=== PATIENT | male | born 1970 ===

== ENCOUNTER 2025-01-17 08:27 | Outpatient (CLI) | payer OTHER ==
[2025-01-17 09:34] LABS: BASO % 0.7 % (0.1-1.2); EOS # 0.24 (0.04-0.54); EOS % 4.2 % (0.7-7.0); HEMOGLOBIN 14.9 g/dL (13.7-17.5); LYMPH # 2.21 (1.18-3.74); LYMPH % 38.6 % (19.3-53.1); MEAN CORPUSCULAR HEMOGLOBIN 29.4 pg (25.6-32.2); MONO # 0.37 (0.24-0.82); MONO % 6.5 % (4.7-12.5); NEUT # 2.82 (1.56-6.13); NEUT % 49.3 % (34.0-71.1); PLATELET COUNT 239 K/uL (163-369); RED BLOOD COUNT 5.07 M/uL (4.63-6.08); RED CELL DISTRIBUTION WIDTH 12.2 % (11.6-14.4)
[2025-01-17 09:52] LABS: INR 0.94; PROTHROMBIN TIME 10.3 SECONDS (9.0-11.5)
[2025-01-17 10:04] LABS: ALBUMIN 4.2 gm/dL (3.4-5.0); BILIRUBIN TOTAL 0.43 mg/dL (0.3-1.2); CALCIUM 8.7 mg/dL (8.5-10.1); CHOL HDL RATIO 3.9 (0-5.0); CREATININE SERUM 0.93 mg/dL (0.70-1.30); GFR 84.35; GLOBULINA 3.3 G/DL (2.4-3.5); POTASSIUM 4.18 mEq/L (3.5-5.1); TOTAL PROTEIN 7.5 gm/dL (6.4-8.2)
== END 2025-01-17 08:28 | disposition home or self-care (01) ==
LOC: LAB 08:27
DX: K76.0 Fatty (change of) liver, not elsewhere classified (principal); K57.90 Diverticulosis of intestine, part unspecified, without perforation or abscess without bleeding; K64.9 Unspecified hemorrhoids; Z80.0 Family history of malignant neoplasm of digestive organs; Z12.11 Encounter for screening for malignant neoplasm of colon; E16.2 Hypoglycemia, unspecified; E03.9 Hypothyroidism, unspecified; D53.9 Nutritional anemia, unspecified; E78.5 Hyperlipidemia, unspecified